=== PATIENT | female | born 1935 | race Caucasian/White ===

== ENCOUNTER 2021-12-04 15:22 | Inpatient (IN) | payer MEDICARE, OTHER ==
[2021-12-04] VITALS (11 sets, daily range): BP systolic 70–134; BP diastolic 45–73
[~2021-12-04] VITALS: Ht 160 cm; Wt 55.8 kg
--- NOTE | 2021-12-04 15:32 | NUR ---
TO ER BED 8, [id number] FOR FOR RESPIRATORY DISTRESS AND ALTERED MENTATION, PER EMS ROOM AIR SAT AT 92%, GIVEN 4L NC SATTING AT 100%, NON VERBAL, MD AT BEDSIDE, CONNECTED TO MONITOR.
--- NOTE | 2021-12-04 15:40 | NUR ---
URINE COLLECTED AND SENT TO LAB
--- NOTE | 2021-12-04 15:45 | NUR ---
MIDLINE ESTABLISHED BY DR WASHBURN, BLOOD DRAWN AND PICKED UP BY LAB
[2021-12-04] MEDS ORDERED: INSU100V27 SQ (15:55)
[2021-12-04] MEDS ORDERED: APIX2.5T PEG (15:55)
[2021-12-04] MEDS ORDERED: IPRA12.9 IH (15:55)
[2021-12-04] MEDS ORDERED: METH5TAB6 PEG (15:55)
[2021-12-04] MEDS ORDERED: GLYC2TAB21 PEG (15:55)
[2021-12-04] MEDS ORDERED: PRED5TAB48 PEG (15:55)
[2021-12-04] MEDS ORDERED: MULT-447 PEG (15:55)
[2021-12-04] MEDS ORDERED: CHOL100043 PEG (15:55)
[2021-12-04] MEDS ORDERED: LANS30CA56 PEG (15:55)
[2021-12-04] MEDS ORDERED: ATOR10TA PEG (15:55)
[2021-12-04] MEDS ORDERED: LEVA1.2528 IH (15:55)
[2021-12-04] MEDS ORDERED: IPRA0.2S9 IH (15:55)
[2021-12-04] MEDS ORDERED: ZINC1CAP3 PEG (15:55)
[2021-12-04] MEDS ORDERED: BISA10SU11 RC (15:55)
[2021-12-04] MEDS ORDERED: ASCO-352 PEG (15:55)
[2021-12-04] MEDS ORDERED: ACET650S26 PEG ×2 (15:55)
[2021-12-04] MEDS ORDERED: NA P133E RC (15:55)
[2021-12-04] MEDS ORDERED: METO25TA20 PEG (15:55)
[2021-12-04] MEDS ORDERED: MAGN400O6 PEG (15:55)
--- NOTE | 2021-12-04 16:00 | NUR ---
INTUBATION WITH DR WASHBURN: GAVE 30MG PROPOFOL AND STARTED ON PROPOFOL DRIP 25MCG/KG/MIN
--- NOTE | 2021-12-04 16:00 | NUR ---
RT NOTE RT CALLED TO BEDSIDE FOR PT INTUBATION. PT INTUBATED WITH ETT 7.5 @23 LIP LINE. COLOR CHANGED ON CO2 MONITOR. EQUAL AND BILATERAL CHEST RISE. ETT PATENT AND SECURED VIA ANCHOR FAST. VENT SETTINGS CHARTED. PT SUCTIONED. VENT ALARMS ARE ON AND AUDIBLE. BVM BED SIDE. VENT PLUGGED IN RED OUTLET. ABG WILL BE DRAWN IN 30 MINUTES. X-RAY DONE AND CONFIRMED BY JENNIFER WASHBURN DNP. WILL CONTINUE TO MONITOR PT. Addendum: 12/04/21 at 1633 by MARIELLE GARY RT Amended: Links added.
[2021-12-04] MEDS ORDERED: PROPOFOL 100 ML ONE (16:01)
[2021-12-04 16:22] LABS: BASOPHILS # (AUTO) 0.1 K/uL (0.0-0.2); BASOPHILS % (AUTO) 0.6 % (0.0-2.0); EOSINOPHILS % (AUTO) 1.4 % (0.0-6.0); HEMATOCRIT 22 % (33-45); HEMOGLOBIN 7.2 g/dL (11.5-14.8); LYMPHOCYTES # (AUTO) 3.6 K/uL (0.8-4.8); LYMPHOCYTES % (AUTO) 28.5 % (20.0-44.0); MEAN CORPUSCULAR HGB CONC 33 g/dl (31.0-36.0); MEAN CORPUSCULAR VOLUME 101 fL (82-100); MONOCYTES # (AUTO) 0.8 K/uL (0.1-1.30); MONOCYTES % (AUTO) 6.5 % (2.0-12.0); NEUTROPHILS # (AUTO) 7.9 K/uL (1.8-8.9); PLATELET COUNT (AUTO) 196 K/uL (150-450); RED BLOOD CELL COUNT(AUTO) 2.19 MIL/uL (4.0-5.2); WHITE BLOOD COUNT (AUTO) 12.5 K/uL (4.3-11.0)
[2021-12-04] MEDS ORDERED: VANCOMYCIN 1 GM in IV D5W 250 ML IV ONE (16:30)
[2021-12-04] MEDS ORDERED: PIPERACILLIN /TAZOBACTAM 3.375 G in IV D5W 50 ML IV ONE (16:30)
[2021-12-04] MEDS ORDERED: IV NS 0.9% 1,000 ML BAG IV ONE (16:30)
[2021-12-04] MEDS ORDERED: DILTIAZEM HCL IV 125 MG in IV D5W 100 ML IV ONE (16:30)
[2021-12-04] MEDS ORDERED: DILTIAZEM HCL 25 MG IV IVP ONE (16:30)
[2021-12-04] MEDS ORDERED: DILTIAZEM HCL 50 MG IV ONE (16:32)
[2021-12-04 16:35] LABS: BILIRUBIN,URINE NEGATIVE (NEGATIVE); COLOR,URINE YELLOW (YELLOW); LEUKOCYTE ESTERASE ,URINE LARGE (NEGATIVE); NITRITE, URINE POSITIVE (NEGATIVE); PROTEIN,URINE 30 mg/dl (NEGATIVE); UGLUCOSE NEGATIVE (NEGATIVE)
[2021-12-04 16:43] LABS: CALCIUM, SERUM 8.6 mg/dL (8.5-10.1); CARBON DIOXIDE 34 mmol/L (21-32); CHLORIDE 104 mmol/L (98-107); CREATININE 0.5 mg/dL (0.6-1.3); GLUCOSE 152 mg/dL (74-106); POTASSIUM 3.8 mmol/L (3.5-5.1); SODIUM SERUM 142 mmol/L (136-145); UREA NITROGEN, BLOOD 20 mg/dL (7-18)
[2021-12-04 16:48] LABS: ABG BASE EXCESS 6.9 mmol/L; ABG PCO2 33.9 mmHg (35.0-45.0); ABG PH 7.559 (7.350-7.450); COHb 0.3 % (0.5-1.5); MetHb 0.4 % (0.0-1.5); O2Hb 98.4 % (94.0-97.0); SITE, ABG Left Radial
[2021-12-04] MEDS ORDERED: ROCURONIUM BROMIDE 50 MG/5 ML IV ONE (16:55)
[2021-12-04] MEDS ORDERED: ETOMIDATE 2 MG/ML VIAL IV ONE (16:55)
[2021-12-04] MEDS ORDERED: PROPOFOL 200 MG/20 ML VIAL IV ONE (16:55)
[2021-12-04 16:57] LABS: ALANINE AMINOTRANSFERASE 43 U/L (12-78); ALBUMIN 2.3 g/dL (3.4-5.0); ALKALINE PHOSPHATASE 73 U/L (46-116); ASPARTATE AMINOTRANSFERASE 18 U/L (15-37); BILIRUBIN,DIRECT 0.1 mg/dL (0.0-0.2); BILIRUBIN,TOTAL 0.4 mg/dL (0.2-1.0); TOTAL PROTEIN, SERUM 5.8 g/dL (6.4-8.2)
[2021-12-04 16:57] LABS: BACTERIA,URINE 3+ /HPF (None Seen); RBC,URINE 0-2 /HPF (0-2); SQUAMOUS EPITHELIAL CELL,UR 0-2 /HPF (None Seen); WBC,URINE 51-80 /HPF (0-3)
[2021-12-04 16:58] LABS: YEAST,URINE Many /HPF (None Seen)
[2021-12-04 17:03] LABS: BAND % (MANUAL) 5 % (0.0-5.0); EOSINOPHILS % (MANUAL) 2 % (0-4); LYMPHOCYTES % (MANUAL) 19 % (16-48); MONOCYTES % (MANUAL) 5 % (0-11.0); NEUTROPHILS % (MANUAL) 69 (42-76)
[2021-12-04] MEDS ORDERED: FENTANYL CITRATE/PF 2,500 MCG in IV NS 0.9% 200 ML IV PRN (17:30)
[2021-12-04] MEDS ORDERED: KEY,NONCONTROL,TO KEEP IN PYXI 1 EA MC ONE (17:51)
--- NOTE | 2021-12-04 18:00 | NUR ---
REPORT GIVEN TO KENDAL BROWN RN FOR LEONELA
--- NOTE | 2021-12-04 18:56 | NUR ---
PLEASE CONTACT DAUGHTER TANESHA [phone] IF PT DECLINES. FAMILY WANTS TO BE BEDSIDE IF THINGS TURN FOR THE WORST.
--- NOTE | 2021-12-04 19:43 | NUR ---
RN NOTE RECEIVED PATIENT FROM ER, TRANSFERRED TO ROOM 258. SAFELY TRANSFERRED TO BED. ADMITTING DIAGNOSIS: SEPSIS/ACUTE RESPIRATORY FAILURE. PATIENT IS SEDATED AND RECEIVED PATIENT ON FENTANYL 69MCG/HR. INTUBATED WITH ETT 7.5 @23 LIP LINE. TOLERATING SETTINGS WELL. O2 SAT 100%. NOTED WITH THICK PINK-TINGED/WHITE SECRETIONS. ORAL CARE DONE. AFIB 120'S ON MONITOR. WITH G-TUBE, CLAMPED. SIMPSON DRAINING URINE VIA GRAVITY. IV ACCESS ON RIGHT IJ TLC AND LAUREN MIDLINE #18 PATENT AND INTACT, FLUSHED ASEPTICALLY. SKIN ASSESSMENT DONE, NOTED WITH RIGHT FOREARM SCABS AND SACRUM WOUND. NOTED WITH SOFT BM, KEPT CLEAN AND DRY. RECEIVED PATIENT ON BILATERAL SOFT WRIST RESTRAINTS, SKIN AND CIRCULATION CHECKED. BED LOCKED AND IN LOWEST POSITION. CALL LIGHT WITHIN REACH. WILL CONTINUE TO MONITOR.
--- NOTE | 2021-12-04 19:58 | NUR ---
PATIENT TRANSFERRED TO [facility] VIA ACLS PROTOCOL
[2021-12-04] MEDS ORDERED: ONDANSETRON HCL/PF 4 MG/2 ML VIAL IVP PRN (20:30)
[2021-12-04] MEDS ORDERED: ACETAMINOPHEN 325 MG TABLET PO PRN (20:30)
[2021-12-04] MEDS ORDERED: Z GUARD REMEDY 4 OZ OINT TP PRN (20:30)
[2021-12-04] MEDS: MICAFUNGIN SODIUM 100 MG in IV NS 0.9% 100 ML IV SCH ×2 (20:45→20:49)
[2021-12-04] MEDS: MIDAZOLAM HCL 100 MG in IV NS 0.9% 80 ML IV PRN (20:52)
[2021-12-04] MEDS: FENTANYL CITRAT IV 2,500 MCG in IV NS 0.9% 200 ML IV PRN (20:53)
[2021-12-04] MEDS: IV NS 0.9% 1,000 ML IV PRN (20:54)
[2021-12-04] MEDS ORDERED: VANCOMYCIN 500 MG in IV D5W 100 ML IV ONE (21:00)
[2021-12-04] MEDS: MEROPENEM 1 G in IV NS 0.9% 100 ML IV SCH (21:40)
[2021-12-04] MEDS ORDERED: NOREPINEPHRINE 8MG/250ML RTU 250 ML IV ONE (21:52)
[2021-12-04] MEDS ORDERED: ATORVASTATIN 10 MG TABLET PEG SCH (22:00)
[2021-12-04] MEDS: NOREPINEPHRINE 8 MG in IV NS 0.9% 242 ML IV PRN (22:07)
[2021-12-04] MEDS: IV NS 0.9% 250 ML IV PRN (23:40)
[2021-12-05] VITALS (84 sets, daily range): BP systolic 62–147; BP diastolic 40–92
[2021-12-05] MEDS ORDERED: PIPERACILLIN /TAZOBACTAM 3.375 G in IV D5W 50 ML IV SCH ×2
[2021-12-05 03:53] LABS: BASOPHILS # (AUTO) 0.1 K/uL (0.0-0.2); BASOPHILS % (AUTO) 0.6 % (0.0-2.0); EOSINOPHILS % (AUTO) 2.4 % (0.0-6.0); LYMPHOCYTES # (AUTO) 3.7 K/uL (0.8-4.8); MEAN CORPUSCULAR HGB CONC 33 g/dl (31.0-36.0); MEAN CORPUSCULAR VOLUME 100 fL (82-100); MONOCYTES % (AUTO) 6.9 % (2.0-12.0); NEUTROPHILS # (AUTO) 10.1 K/uL (1.8-8.9); NEUTROPHILS % (AUTO) 66.1 % (43.0-81.0); PLATELET COUNT (AUTO) 209 K/uL (150-450); WHITE BLOOD COUNT (AUTO) 15.2 K/uL (4.3-11.0)
[2021-12-05 04:13] LABS: RED BLOOD CELL COUNT(AUTO) 1.84 MIL/uL (4.0-5.2)
[2021-12-05 04:15] LABS: HEMATOCRIT 18 % (33-45)
[2021-12-05 04:21] LABS: ALANINE AMINOTRANSFERASE 42 U/L (12-78); ALKALINE PHOSPHATASE 89 U/L (46-116); ASPARTATE AMINOTRANSFERASE 21 U/L (15-37); BILIRUBIN,TOTAL 0.7 mg/dL (0.2-1.0); CALCIUM, SERUM 7.5 mg/dL (8.5-10.1); CARBON DIOXIDE 30 mmol/L (21-32); CHLORIDE 107 mmol/L (98-107); CREATININE 0.5 mg/dL (0.6-1.3); GLUCOSE 133 mg/dL (74-106); MAGNESIUM 1.9 mg/dL (1.8-2.4); PHOSPHORUS 2.7 mg/dL (2.5-4.9); POTASSIUM 3.3 mmol/L (3.5-5.1); SODIUM SERUM 141 mmol/L (136-145); TOTAL PROTEIN, SERUM 4.9 g/dL (6.4-8.2); UREA NITROGEN, BLOOD 19 mg/dL (7-18)
[2021-12-05 04:23] LABS: IRON, SERUM 21 ug/dl (50-175); TOTAL IRON BINDING CAPACITY 138 ug/dl (250-450)
[2021-12-05 04:32] LABS: CHOLESTEROL 104 mg/dL (<200); HDL CHOLESTEROL 30 mg/dL (40-60); LDL 49 mg/dL (0-99); THYROID STIMULATING HORMONE 0.208 uIU/mL (0.358-3.74); TRIGLYCERIDES 146 mg/dL (30-150)
--- NOTE | 2021-12-05 05:15 | NUR ---
RN NOTE RELAYED TO ALLY ADAMS PATIENT CRITICAL LAB H/H 6.0/18 AND POTASSIUM 3.3. RECEIVED NEW ORDERS TO TRANSFUSE 1 UNIT PRBC NOTED AND CARRIED OUT.
--- NOTE | 2021-12-05 07:29 | NUR ---
RN NOTE PATIENT SEDATED AND INTUBATED, O2 SAT 100%. HEAD OF BED KEPT ELEVATED. TURNED AND REPOSITIONED. BED LOCKED AND IN LOWEST POSITION. ENDORSED TO AM SHIFT.
[2021-12-05 07:47] LABS: ABG BASE EXCESS 5.6 mmol/L; ABG OXYGEN SATURATION 98.4 % (92.0-98.5); ABG PCO2 29.1 mmHg (35.0-45.0); ABG PH 7.595 (7.350-7.450); ABG PO2 142.3 mmHg (75.0-100.0); AaDO2 109.4 mmHg; COHb 0.3 % (0.5-1.5); O2Hb 97.1 % (94.0-97.0); SITE, ABG Left Radial
[2021-12-05] MEDS ORDERED: METHIMAZOLE (5MG) 5 MG TABLET GT SCH (09:00)
[2021-12-05] MEDS: METOPROLOL TARTRATE 25 MG TABLET PEG SCH ×2 (09:00→16:38)
[2021-12-05] MEDS ORDERED: predniSONE 5 MG TABLET GT SCH (09:00)
[2021-12-05] MEDS ORDERED: APIXABAN 2.5 MG TABLET GT SCH (09:00)
--- NOTE | 2021-12-05 10:59 | NUR ---
BLOOD TRANSFUSION WAS VERIFIED PRIOR TO ADMINISTRATION AT 1017, PER BLOOD BANK THE FILE WAS LEFT OPEN THERE SO THE FILE WOUND NOT CONVERT TO TRANSFUSING UNTIL 1059. BLOOD TRANSFUSION RECORD APPEARS TO BE WORKING OF THIS TIME
--- NOTE | 2021-12-05 11:00 | NUR ---
WOUND CARE CONSULT: PT PRESENTS WITH SACRAL UNSTAGEABLE ULCER AND DRY ESCHARS TO RT WRIST AREA, PRESENT ON ADMISSION.SURGICAL CONSULT CALLED TO DR GARCIA. RECOMMENDATIONS MADE FOR SKIN PROTECTION. DISCUSSED WITH NURSING STAFF. FIRST STEP LOW AIRLOSS MATTRESS IS ON ORDER. MD IN AGREEMENT WITH PLAN OF CARE. Addendum: 12/05/21 at 1101 by FARZANA WHITE WNDNU Amended: Links added.
[2021-12-05] MEDS: MEROPENEM 1 G in IV NS 0.9% 100 ML IV SCH (11:08)
[2021-12-05] MEDS: HYDROCORTISONE SOD SUCCINATE 100 MG/2 ML VIAL IV SCH ×2 (11:08→13:00)
[2021-12-05] MEDS: POTASSIUM CL. PREMIX PERIPHER. 50 ML IV SCH ×4 (11:58→15:09)
[2021-12-05] MEDS: IV NS 0.9% 1,000 ML IV PRN (14:13)
[2021-12-05 16:38] LABS: BAND % (MANUAL) 3 % (0.0-5.0); EOSINOPHILS % (MANUAL) 3 % (0-4); LYMPHOCYTES % (MANUAL) 16 % (16-48); MONOCYTES % (MANUAL) 1 % (0-11.0); NEUTROPHILS % (MANUAL) 67 (42-76); REACTIVE LYMPHOCYTES 1 % (0-0)
[2021-12-05 16:39] LABS: METAMYELOCYTES % 8 % (0-0); MYELOCYTES % 1 % (0-0)
[2021-12-05] MEDS ORDERED: VANCOMYCIN 1 GM in IV D5W 250 ML IV SCH (17:00)
[2021-12-05] MEDS: NOREPINEPHRINE 8 MG in IV NS 0.9% 242 ML IV PRN (18:45)
--- NOTE | 2021-12-05 19:10 | NUR ---
received the pt rest in bed.orally intubated. sedated with fentanyl and versed. hob elevated. remaining same vent settings tolerated well. sat 99%. no acute distress noted. telemetry monitor showing a fib. fc patent,gt intact, pt is npo.family at bed side. will continue to monitor vitals.
--- NOTE | 2021-12-05 19:30 | NUR ---
END OF SHIFT NOTE: PT RECEIVED 1 UNIT PRBCS THIS SHIFT PER MD ORDERS. PT'S DAUGHTER TANESHA AND 2 GRANDDAUGHTERS CAME AT 1830 AND DECIDED TO MAKE PATIENT COMFORT MEASURES. DR. PAREDES NOTIFIED, ORDERS RECEIVED. ENDORSED TO JULIAN ZHENG TO FOLLOW UP WITH FAMILY. PT CHECKED ON HOURLY AND PRN BY NURSING STAFF.
--- NOTE | 2021-12-05 23:10 | NUR ---
olericulturist. pt terminally extubated at 6781
[2021-12-06] VITALS: BP_SYST 77; BP_SYST 90; BP_DIAS 42; BP_DIAS 50
[2021-12-06] MEDS: FENTANYL CITRAT IV 2,500 MCG in IV NS 0.9% 200 ML IV PRN (00:15)
[2021-12-06] MEDS: MIDAZOLAM HCL 100 MG in IV NS 0.9% 80 ML IV PRN (00:16)
--- NOTE | 2021-12-06 00:45 | NUR ---
cvicu nurse. pt is comfort measure now. 0xygen 2l via nasal cannula. fentanyl 69mcg, hob elevated. family at bed side. will continue to monitor. report given tj rn, . pt is transfering to room 319.
--- NOTE | 2021-12-06 02:08 | NUR ---
MS/TELE/RN RECEIVED PATIENT FROM ICU AT AROUND 01:00 BY BED ACCOMPANIED BY FAMILY MEMBERS. PATIENT APPEARS SLEEPING, RESPONSIVE TO TACTILE STIMULATION ONLY, APPEARS COMFORTABLE, NO DISTRESS NOTED, PATIENT IS ON COMFORT CARE ONLY, ON FENTANYL DRIP. WILL MONITOR.
[2021-12-06] MEDS: IV NS 0.9% 250 ML IV PRN (02:25)
--- NOTE | 2021-12-06 07:00 | NUR ---
MS/TELE/RN PATIENT IN BED EYES CLOSED, APPEAR COMFORTABLE, NO DISTRESS NOTED, FAMILY MEMBERS AT BEDSIDE, ENDORSED TO NEXT RN.
--- NOTE | 2021-12-06 07:20 | NUR ---
RN OPENING NOTE- PT IN BED OBTUNDED, FAMILY AT BEDSIDE, COMFORT MEASURES ONLY. SIMPSON CATHETER TO GRAVITY. FENTANYL AT 69MCG/HR VIA IJIV. LAUREN MIDLINE INTACT. BED LOCKED, SIDE RAILS UP, MONITOR/ ASSIST
[2021-12-06] MEDS: DAKINS QUARTER STRENGTH (0.125%) 480 ML BOTTLE TOP SCH (14:00)
[2021-12-06 16:26] VITALS: BP 124/44
--- NOTE | 2021-12-06 19:30 | NUR ---
RN CLOSING NOTE- MINIMAL CHANGE, DECLINING/ PT IN BED OBTUNDED, FAMILY AT BEDSIDE, COMFORT MEASURES ONLY. SIMPSON CATHETER TO GRAVITY. FENTANYL AT 69MCG/HR VIA IJIV. LAUREN MIDLINE INTACT. BED LOCKED, SIDE RAILS UP, MONITOR/ ASSIST
--- NOTE | 2021-12-06 19:35 | NUR ---
RN NOTES RECEIVED PATIENT OBTUNDED, ON COMFORT MEASURES, FAMILY AT BEDSIDE, FENTANYL DRIP ONGOING @ 69MCG/HR, NOT IN DISTRESS, PT'S LOOKS COMFORTABLE, SIDERAILSUPX2, WILL CONTINUE TO MONITOR
[2021-12-06 20:00] VITALS: BP 81/51
--- NOTE | 2021-12-07 | NUR ---
RN NOTES EXPLAINED TO THE FAMILY REGARDING SUCTIONING AND DOING DEEP SUCTIONING, FAMILY LOOKS LIKE THERE NOT READY AND DOESN'T FULLY UNDERSTAND WHAT COMFORT MEASURES IS. CHARGE NURSE ALSO EXPLAINED TO THE PATIENT 'S FAMILY
[2021-12-07] MEDS: IV NS 0.9% 250 ML IV PRN (04:50)
[2021-12-07] MEDS ORDERED: KEY,NONCONTROL,TO KEEP IN PYXI 1 EA MC ONE ×3 (06:20→15:23)
--- NOTE | 2021-12-07 07:05 | NUR ---
RN NOTES MORNING CARE RENDERED, MOUTH CARE DONE, PT. STILL IN DENIAL ABOUT WHAT COMFORT MEASURES MEANS. FAMILY TALKED TO THE CHARGE NURSE, PT. NEEDS ATTENDED
--- NOTE | 2021-12-07 07:20 | NUR ---
ms rn received on bed, awake, easily wakes up, responsive to touch,virgen to gravity w/ scanty output, gtube intact, clamp, fentanyl drip at 69 mcg/hr infusing well at right jugular central line,patient on comfort measure at this time,all needs attended.
[2021-12-07] MEDS: FENTANYL CITRAT IV 2,500 MCG in IV NS 0.9% 200 ML IV PRN (10:17)
[2021-12-07] MEDS ORDERED: SCOPOLAMINE PATCH 1 MG/72HR TD SCH (10:30)
[2021-12-07] MEDS: IV NS 0.9% 1,000 ML IV PRN (13:45)
[2021-12-07 13:59] LABS: BASOPHILS % (AUTO) 0.6 % (0.0-2.0); HEMATOCRIT 22 % (33-45); HEMOGLOBIN 7.2 g/dL (11.5-14.8); LYMPHOCYTES # (AUTO) 1.6 K/uL (0.8-4.8); LYMPHOCYTES % (AUTO) 18.6 % (20.0-44.0); MEAN CORPUSCULAR HGB CONC 33 g/dl (31.0-36.0); MEAN CORPUSCULAR VOLUME 98 fL (82-100); MONOCYTES # (AUTO) 0.6 K/uL (0.1-1.30); MONOCYTES % (AUTO) 6.9 % (2.0-12.0); NEUTROPHILS # (AUTO) 6.1 K/uL (1.8-8.9); NEUTROPHILS % (AUTO) 72.9 % (43.0-81.0); PLATELET COUNT (AUTO) 138 K/uL (150-450); RED BLOOD CELL COUNT(AUTO) 2.27 MIL/uL (4.0-5.2); WHITE BLOOD COUNT (AUTO) 8.4 K/uL (4.3-11.0)
[2021-12-07 14:11] LABS: CARBON DIOXIDE 29 mmol/L (21-32); CHLORIDE 110 mmol/L (98-107); CREATININE 0.5 mg/dL (0.6-1.3); GLUCOSE 141 mg/dL (74-106); POTASSIUM 3.5 mmol/L (3.5-5.1); SODIUM SERUM 143 mmol/L (136-145); UREA NITROGEN, BLOOD 19 mg/dL (7-18)
[2021-12-07] MEDS ORDERED: NA PHOS,M-B/NA PHOS,DI-BA 1 EA ENEMA RC PRN (15:00)
[2021-12-07] MEDS ORDERED: Z GUARD REMEDY 4 OZ OINT TP PRN (15:00)
[2021-12-07] MEDS ORDERED: ACETAMINOPHEN 325 MG TABLET PO PRN (15:00)
[2021-12-07] MEDS ORDERED: MORPHINE SULFATE INJ 2 MG/ML DISP.SYRIN IV PRN (15:00)
[2021-12-07] MEDS ORDERED: MAG HYDROX/AL HYDROX/SIMETH 30 ML UDC PO PRN (15:00)
[2021-12-07] MEDS ORDERED: MAGNESIUM HYDROXIDE 30 ML UDC PEG PRN (15:00)
[2021-12-07] MEDS ORDERED: ONDANSETRON HCL/PF 4 MG/2 ML VIAL IVP PRN (15:00)
[2021-12-07] MEDS ORDERED: ACETAMINOPHEN 650 MG/20.3 ML UDC PEG PRN (15:00)
[2021-12-07] MEDS ORDERED: MAGNESIUM HYDROXIDE 30 ML UDC PO PRN (15:00)
[2021-12-07] MEDS ORDERED: LEVALBUTEROL HCL NEB 1.25 MG/0.5 ML VIAL.NEB IH PRN (15:30)
--- NOTE | 2021-12-07 15:45 | NUR ---
ms rn discontinue fentanyl drip per md order,will monitor patient.
[2021-12-07] MEDS ORDERED: ENTERAL FORMULA GT PRN (16:00)
--- NOTE | 2021-12-07 16:00 | NUR ---
ms rn all iorders resumed per md, comfort mesures discontinued,patient still dnr/dni status.
--- NOTE | 2021-12-07 16:08 | NUR ---
ms rn on bed, bev banegas talking to family.
[2021-12-07 16:22] LABS: ABG BASE EXCESS 1.6 mmol/L; ABG OXYGEN SATURATION 93.9 % (92.0-98.5); ABG PCO2 32.9 mmHg (35.0-45.0); ABG PH 7.494 (7.350-7.450); ABG PO2 70.3 mmHg (75.0-100.0); AaDO2 90.5 mmHg; COHb 0.1 % (0.5-1.5); MetHb 0.3 % (0.0-1.5); O2Hb 93.5 % (94.0-97.0); SITE, ABG Right Radial; VENT MODE, BG 2 LPM NC
[2021-12-07] MEDS ORDERED: ENTERAL NUTRITION FORMULA GT PRN (16:22)
[2021-12-07] MEDS: CEFTRIAXONE 1 G in IV D5W 50 ML IV SCH (17:43)
[2021-12-07] MEDS ORDERED: IPRATROPIUM NEB FS 0.5 MG/2.5 ML AMPUL.NEB IH SCH (18:00)
[2021-12-07] MEDS: PANTOPRAZOLE 40 MG/PACK PACK PEG SCH (18:10)
[2021-12-07] MEDS: DAKINS QUARTER STRENGTH (0.125%) 480 ML BOTTLE TOP SCH (18:11)
[2021-12-07] MEDS: ACETAMINOPHEN 650 MG/20.3 ML UDC PEG PRN (18:43)
--- NOTE | 2021-12-07 19:05 | NUR ---
ms lead man over all dies in pattern shop at bedside, dr. craig speaks w/ daughter, started tube feeding at 20ml/hr tolerated well w/o residual.
--- NOTE | 2021-12-07 19:40 | NUR ---
MS/RN OPENING NOTE RECEIVED PATIENT RESTING IN BED. OBTUNDED AT BASELINE. NO S/SX OF PAIN NOTED AT THIS TIME. CONTINUES ON O2 2L VIA NC WITH NO S/SX OF RESPIRATORY DISTRESS NOTED. IV ACCESS TO RIGHT UPPER ARM MIDLINE #18G AND RIGHT INTERNAL JUGULAR TRIPLE LUMEN BOTH INTACT AND PATENT. CONTINUES ON IVF NS @ 75ML/HR. CONTINUES ON IV ABX. GTUBE FEED JEVITY 1.2 CARA RUNNING AT 20ML/HR WITH GOAL RATE OF 60ML/HR CONTINUOUS. NO RESIDUAL NOTED AT THIS TIME. SIMPSON CATHETER IN PLACE DRAINING YELLOW URINE TO GRAVITY. CALL LIGHT WITHIN REACH. ASPIRATION, FALL AND SAFETY PRECAUTIONS MAINTAINED. WILL CONTINUE TO MONITOR.
[2021-12-07 20:00] VITALS: BP 154/81
--- NOTE | 2021-12-07 20:30 | NUR ---
MS/RN NOTE SPOKE WITH DR. PAREDES REGARDING CODE STATUS. PER DR. PAREDES PATIENT IS DNR/DNI. CONFIRMED WITH CYNTHIA ZHENG. ORDER CHANGED.
[2021-12-07] MEDS: GLYCOPYRROLATE 1 MG TABLET GT SCH (22:03)
[2021-12-08] MEDS: IPRATROPIUM NEB FS 0.5 MG/2.5 ML AMPUL.NEB IH SCH ×4 (01:29→20:24)
[2021-12-08] MEDS ORDERED: IPRATROPIUM NEB FS 0.5 MG/2.5 ML AMPUL.NEB IH SCH (01:30)
[2021-12-08] MEDS: IV NS 0.9% 1,000 ML IV PRN ×2 (01:30→15:10)
[2021-12-08] MEDS: HYDROMORPHONE 1 MG/1 ML DISP.SYRIN IV PRN ×2 (01:38→20:39)
--- NOTE | 2021-12-08 01:38 | NUR ---
MS/RN NOTE PATIENT NOTED WITH ELEVATED BP AND HR. MOANING AT TIMES. WILL ADMINISTER PRN PAIN MEDICATION.
[2021-12-08] MEDS: GLYCOPYRROLATE 1 MG TABLET GT SCH ×3 (05:06→20:20)
--- NOTE | 2021-12-08 06:30 | NUR ---
MS/RN CLOSING NOTE PATIENT CURRENTLY RESTING IN BED. OBTUNDED AT BASELINE. NO S/SX OF PAIN NOTED AT THIS TIME. CONTINUES ON O2 2L VIA NC WITH NO S/SX OF RESPIRATORY DISTRESS NOTED. IV ACCESS TO RIGHT UPPER ARM MIDLINE #18G AND RIGHT INTERNAL JUGULAR TRIPLE LUMEN BOTH INTACT AND PATENT. CONTINUES ON IVF NS @ 75ML/HR. CONTINUES ON IV ABX. GTUBE FEED JEVITY 1.2 CARA RUNNING AT 30ML/HR WITH GOAL RATE OF 60ML/HR CONTINUOUS. NO RESIDUAL NOTED AT THIS TIME. SIMPSON CATHETER IN PLACE DRAINING YELLOW URINE TO GRAVITY. SIMPSON OUTPUT THIS SHIFT IS 600CC. CALL LIGHT WITHIN REACH. ASPIRATION, FALL AND SAFETY PRECAUTIONS MAINTAINED. WILL ENDORSE PLAN OF CARE TO ONCOMING SHIFT.
[2021-12-08 06:48] LABS: BASOPHILS # (AUTO) 0.1 K/uL (0.0-0.2); BASOPHILS % (AUTO) 0.6 % (0.0-2.0); EOSINOPHILS % (AUTO) 1.7 % (0.0-6.0); HEMATOCRIT 30 % (33-45); HEMOGLOBIN 9.8 g/dL (11.5-14.8); LYMPHOCYTES # (AUTO) 2.6 K/uL (0.8-4.8); LYMPHOCYTES % (AUTO) 27.1 % (20.0-44.0); MEAN CORPUSCULAR HGB CONC 33 g/dl (31.0-36.0); MEAN CORPUSCULAR VOLUME 98 fL (82-100); MONOCYTES # (AUTO) 0.6 K/uL (0.1-1.30); MONOCYTES % (AUTO) 6.8 % (2.0-12.0); NEUTROPHILS % (AUTO) 63.8 % (43.0-81.0); PLATELET COUNT (AUTO) 180 K/uL (150-450); RED BLOOD CELL COUNT(AUTO) 3.06 MIL/uL (4.0-5.2); WHITE BLOOD COUNT (AUTO) 9.5 K/uL (4.3-11.0)
[2021-12-08 07:18] LABS: CALCIUM, SERUM 8.2 mg/dL (8.5-10.1); CARBON DIOXIDE 27 mmol/L (21-32); CHLORIDE 110 mmol/L (98-107); CREATININE 0.5 mg/dL (0.6-1.3); GLUCOSE 171 mg/dL (74-106); MAGNESIUM 2.2 mg/dL (1.8-2.4); PHOSPHORUS 2.5 mg/dL (2.5-4.9); POTASSIUM 3.5 mmol/L (3.5-5.1); SODIUM SERUM 144 mmol/L (136-145); UREA NITROGEN, BLOOD 18 mg/dL (7-18)
--- NOTE | 2021-12-08 07:20 | NUR ---
ms rn received on bed, sleeping, easily awake,non verbal patient w/ virgen to gravity, g tube feeding intact w/ jevity 1.2 at 30 ml/hour ,no s/s of pain noted, will monitor patient.
[2021-12-08 08:31] VITALS: BP 150/94
--- NOTE | 2021-12-08 09:00 | NUR ---
ms franklin was seen b y bev banegas/ orders made and carried out.
[2021-12-08] MEDS: CHOLECALCIFEROL 1,000 UNIT TABLET (VIT D3) PEG SCH (09:59)
[2021-12-08] MEDS: MULTIVIT W/MINERALS 1 TAB TABLET GT SCH (09:59)
[2021-12-08] MEDS: PANTOPRAZOLE 40 MG/PACK PACK PEG SCH ×2 (09:59→18:00)
[2021-12-08] MEDS: APIXABAN 2.5 MG TABLET PO SCH ×2 (10:00→18:00)
[2021-12-08] MEDS: DAKINS QUARTER STRENGTH (0.125%) 480 ML BOTTLE TOP SCH (10:01)
--- NOTE | 2021-12-08 11:00 | NUR ---
ms rn am care done , daughter at bedside.
[2021-12-08] MEDS: ACETAMINOPHEN 650 MG/20.3 ML UDC PEG PRN ×2 (13:07→20:44)
--- NOTE | 2021-12-08 14:00 | NUR ---
ms rn daughter at bedside,all needs attended.
[2021-12-08] MEDS: CEFTRIAXONE 1 G in IV D5W 50 ML IV SCH (16:07)
[2021-12-08] MEDS ORDERED: ENTERAL NUTRITION FORMULA GT PRN (16:08)
[2021-12-08 16:43] VITALS: BP 145/89
--- NOTE | 2021-12-08 18:06 | NUR ---
ms rn on bed, no distress noted,all needs attended.
--- NOTE | 2021-12-08 19:40 | NUR ---
MS/RN OPENING NOTE RECEIVED PATIENT RESTING IN BED. OBTUNDED AT BASELINE. NO S/SX OF PAIN NOTED AT THIS TIME. CONTINUES ON O2 2L VIA NC WITH NO S/SX OF RESPIRATORY DISTRESS NOTED. IV ACCESS TO RIGHT UPPER ARM MIDLINE #18G AND RIGHT INTERNAL JUGULAR TRIPLE LUMEN BOTH INTACT, PATENT AND SALINE LOCKED. CONTINUES ON IV ABX. GTUBE FEED JEVITY 1.2 CARA RUNNING AT 30ML/HR WITH GOAL RATE OF 60ML/HR CONTINUOUS. NO RESIDUAL NOTED AT THIS TIME. SIMPSON CATHETER IN PLACE DRAINING YELLOW URINE TO GRAVITY. CALL LIGHT WITHIN REACH. ASPIRATION, FALL AND SAFETY PRECAUTIONS MAINTAINED. WILL CONTINUE TO MONITOR.
[2021-12-08 20:00] VITALS: BP 170/69
--- NOTE | 2021-12-08 20:50 | NUR ---
MS/RN NOTE PATIENT NOTED WITH ELEVATED BP AND HR. TEMP IS 100.5. COOLING MEASURES INITIATED. TYLENOL GIVEN VIA GT. PRN DILAUDID GIVEN FOR S/SX OF PAIN. WILL CONTINUE TO MONITOR.
[2021-12-08] MEDS ORDERED: MEROPENEM 500 MG in IV NS 0.9% 50 ML IV SCH (21:00)
[2021-12-08] MEDS: MEROPENEM 500 MG in IV NS 0.9% 100 ML IV SCH (21:00)
[2021-12-08 21:39] VITALS: BP 130/72
[2021-12-09] MEDS: IPRATROPIUM NEB FS 0.5 MG/2.5 ML AMPUL.NEB IH SCH ×3 (01:32→12:36)
[2021-12-09] MEDS: GLYCOPYRROLATE 1 MG TABLET GT SCH (04:45)
[2021-12-09] MEDS: MEROPENEM 500 MG in IV NS 0.9% 100 ML IV SCH (04:46)
[2021-12-09 06:23] LABS: HEMATOCRIT 24 % (33-45); HEMOGLOBIN 7.8 g/dL (11.5-14.8); LYMPHOCYTES % (AUTO) 21.4 % (20.0-44.0); MEAN CORPUSCULAR HGB CONC 33 g/dl (31.0-36.0); MEAN CORPUSCULAR VOLUME 97 fL (82-100); MONOCYTES % (AUTO) 6.5 % (2.0-12.0); NEUTROPHILS % (AUTO) 68.8 % (43.0-81.0); PLATELET COUNT (AUTO) 199 K/uL (150-450); RED BLOOD CELL COUNT(AUTO) 2.44 MIL/uL (4.0-5.2); WHITE BLOOD COUNT (AUTO) 8.7 K/uL (4.3-11.0)
[2021-12-09 06:24] LABS: BASOPHILS # (AUTO) 0.1 K/uL (0.0-0.2); BASOPHILS % (AUTO) 0.7 % (0.0-2.0); EOSINOPHILS % (AUTO) 2.6 % (0.0-6.0); LYMPHOCYTES # (AUTO) 1.9 K/uL (0.8-4.8); MONOCYTES # (AUTO) 0.6 K/uL (0.1-1.30)
--- NOTE | 2021-12-09 06:37 | NUR ---
MS/RN CLOSING NOTE PATIENT CURRENTLY RESTING IN BED. OBTUNDED AT BASELINE. NO S/SX OF PAIN NOTED AT THIS TIME. CONTINUES ON O2 2L VIA NC WITH NO S/SX OF RESPIRATORY DISTRESS NOTED. IV ACCESS TO RIGHT UPPER ARM MIDLINE #18G AND RIGHT INTERNAL JUGULAR TRIPLE LUMEN BOTH INTACT, PATENT AND SALINE LOCKED. CONTINUES ON IV ABX. GTUBE FEED JEVITY 1.2 CARA RUNNING AT 30ML/HR WITH GOAL RATE OF 60ML/HR CONTINUOUS. NO RESIDUAL NOTED AT THIS TIME. SIMPSON CATHETER IN PLACE DRAINING YELLOW URINE TO GRAVITY. SIMPSON OUTPUT IS 200ML FOR THIS SHIFT. CALL LIGHT WITHIN REACH. ASPIRATION, FALL AND SAFETY PRECAUTIONS MAINTAINED. WILL ENDORSE PLAN OF CARE TO ONCOMING SHIFT. Addendum: 12/09/21 at 0644 by ELIZABETH AMADOR RN CORRECTION: JEVITY 1.2 CARA RUNNING AT 40ML/HR WITH NO RESIDUAL NOTED AT THIS TIME.
[2021-12-09 08:00] VITALS: BP 160/95
[2021-12-09 08:15] LABS: CARBON DIOXIDE 25 mmol/L (21-32); CHLORIDE 109 mmol/L (98-107); CREATININE 0.4 mg/dL (0.6-1.3); GLUCOSE 189 mg/dL (74-106); SODIUM SERUM 142 mmol/L (136-145); UREA NITROGEN, BLOOD 15 mg/dL (7-18)
[2021-12-09] MEDS ORDERED: LEVO500T90 PO (10:11)
[2021-12-09] MEDS: POTASSIUM CHLORIDE 20 MEQ POWDER PACKET GT SCH ×2 (10:54→11:04)
[2021-12-09] MEDS: APIXABAN 2.5 MG TABLET PO SCH (10:56)
--- NOTE | 2021-12-09 11:00 | NUR ---
FIGHTING NURSE WITH ATTEMPT TO TAKE PHOTOS.
[2021-12-09] MEDS: CHOLECALCIFEROL 1,000 UNIT TABLET (VIT D3) PEG SCH (11:04)
[2021-12-09] MEDS: MULTIVIT W/MINERALS 1 TAB TABLET GT SCH (11:04)
[2021-12-09] MEDS: PANTOPRAZOLE 40 MG/PACK PACK PEG SCH (11:05)
[2021-12-09] MEDS: DAKINS QUARTER STRENGTH (0.125%) 480 ML BOTTLE TOP SCH (11:06)
--- NOTE | 2021-12-09 11:10 | NUR ---
POTASSIUM REPLACEMENT GIVEN PER G TUBE.
--- NOTE | 2021-12-09 12:40 | NUR ---
ASSESSMENT UNCHANGED.VS STABLE.WD. CARE DONE.F/C OUTPUT GOOD.DC ORDER GIVEN.MIDLINE AND IJ CATHETERS REMOVED.GTUBE PLUGGED. REPORT CALLED TO [facility],REPORT TO DRIVERS,DTR. HERE AND RN GAVE HER PT. STATUS.TAKEN VIA AMB. WITH ALL PAPERWORK TO [facility].
== END 2021-12-09 13:00 | DRG 871 ==
LOC: ER 15:26 → ICU 16:33 → MED 12-06 00:53
PROVIDERS: ADMIT Nurse Practitioner Acute Care; ATTEND Internal Medicine
PROC: 5A1945Z Respiratory Ventilation, 24-96 Consecutive Hours (ICD-10-PCS; principal; 2021-12-04)
PROC: 05HC33Z Insertion of Infusion Device into Left Basilic Vein, Percutaneous Approach (ICD-10-PCS; 2021-12-04)
PROC: 05HM33Z Insertion of Infusion Device into Right Internal Jugular Vein, Percutaneous Approach (ICD-10-PCS; 2021-12-04)
PROC: B543ZZA Ultrasonography of Right Jugular Veins, Guidance (ICD-10-PCS; 2021-12-04)
PROC: 30233N1 Transfusion of Nonautologous Red Blood Cells into Peripheral Vein, Percutaneous Approach (ICD-10-PCS; 2021-12-05)
DX: A41.9 Sepsis, unspecified organism (principal); J96.01 Acute respiratory failure with hypoxia; G93.41 Metabolic encephalopathy; R65.21 Severe sepsis with septic shock; J69.0 Pneumonitis due to inhalation of food and vomit; J15.6 Pneumonia due to other Gram-negative bacteria; D68.59 Other primary thrombophilia; N39.0 Urinary tract infection, site not specified; J98.11 Atelectasis; J84.9 Interstitial pulmonary disease, unspecified; B37.49 Other urogenital candidiasis; I82.403 Acute embolism and thrombosis of unspecified deep veins of lower extremity, bilateral; E87.2 Acidosis; D64.9 Anemia, unspecified; E11.9 Type 2 diabetes mellitus without complications; Z86.711 Personal history of pulmonary embolism; R65.20 Severe sepsis without septic shock; Z20.822 Contact with and (suspected) exposure to COVID-19; F02.80 Dementia in other diseases classified elsewhere, unspecified severity, without behavioral disturbance, psychotic disturbance, mood disturbance, and anxiety; G30.9 Alzheimer's disease, unspecified; Z66 Do not resuscitate; I10 Essential (primary) hypertension; Z51.5 Encounter for palliative care; Z85.118 Personal history of other malignant neoplasm of bronchus and lung; Z88.5 Allergy status to narcotic agent; Z88.8 Allergy status to other drugs, medicaments and biological substances; Z79.51 Long term (current) use of inhaled steroids; Z79.4 Long term (current) use of insulin; Z79.01 Long term (current) use of anticoagulants; Z79.899 Other long term (current) drug therapy; I48.91 Unspecified atrial fibrillation; I25.10 Atherosclerotic heart disease of native coronary artery without angina pectoris; F09 Unspecified mental disorder due to known physiological condition; R13.10 Dysphagia, unspecified; E87.6 Hypokalemia; Z93.1 Gastrostomy status; I27.20 Pulmonary hypertension, unspecified; E05.90 Thyrotoxicosis, unspecified without thyrotoxic crisis or storm; B96.20 Unspecified Escherichia coli [E. coli] as the cause of diseases classified elsewhere; L89.150 Pressure ulcer of sacral region, unstageable
CPT/HCPCS: 31720; 36415; 36600; 71045-TC; 80048-TC; 80053-TC; 80061-TC; 80076-TC; 81001; 82803-TC; 82962-TC; 83540-TC; 83605-TC; 83735-TC; 83880; 84100-TC; 84443-TC; 84484-TC; 85025-TC; 85730-TC; 86850-TC; 87040-TC; 87086-TC; 87186-TC; 93307-TC; 93970-TC; 94002-TC; 94003-TC; 94760-TC; 94799-TC; 99082-TC; A6253; A6403; G0378; J0696; J1170; J1720; J2185; J2248; J2250; J2543; J2704; J3010; J3370; J3480; J3490; J7030; J7040; J7050; J7060; J7512; P9016